=== PATIENT | male | born 1955 | race American Indian/Alaskan Native ===

== ENCOUNTER 2020-07-30 12:40 | Emergency (ER) | payer MEDICARE ==
[2020-07-30] MEDS ORDERED: HYDROmorphone 1 MG/1 ML INJ IV ONE (12:55)
[2020-07-30] MEDS ORDERED: ONDANSETRON 4 MG/2 ML INJ IV ONE (12:55)
[2020-07-30] MEDS ORDERED: KETOROLAC 30 MG/1 ML INJ IM ONE (12:55)
--- NOTE | 2020-07-30 13:01 | Emergency Department Report ---
ED Lower Extremity HPI - General Stated Complaint: LT HIP PAIN Time Seen by Provider: 07/30/20 12:55 - History of Present Illness Initial Comments: 64-year-old male with a past medical history of right hip pain July last year secondary to arthritis and no other medical problems presents to the hospital complaining of left hip pain after fall. Patient was walking down the steps and slipped landing on his left hip and buttock area. Complains of mo derate to severe left hip pain radiating to his back. Pain is worse with movement and palpation. Unable to bear weight since fall. patient denies head injury, neck pain, or LOC. Patient received fentanyl 100 mcg in route to the hospital with some improvement in pain. Patient states he takes motion, muscle relaxant, and unknown medication is starts with an N. His orthopedic surgeon is Dr. Martinez associated with [facility] - Related Data Previous Rx's Medication Instructions Recorded Last Taken Type Docusate Sodium [Colace] 100 mg PO BID PRN #20 capsule 07/30/20 Unknown Rx HYDROcodone/APAP 5-325 [[place] 1 each PO Q6HR PRN #15 tablet 07/30/20 Unknown Rx 5/325] Allergies Allergy/AdvReac Type Severity Reaction Status Date / Time No Known Allergies Allergy Unverified 07/30/20 13:07 ED Review of Systems ROS: Stated complaint: LT HIP PAIN Other details as noted in HPI Comment: All other systems reviewed and negative ED Past Medical Hx - Past Medical History Hx Hypertension: No Hx Arthritis: Yes - Surgical History Additional Surgical History: Right hip replacement due to arthritis - Medications Home Medications: Home Medications Medication Instructions Recorded Confirmed Last Taken Type Docusate Sodium [Colace] 100 mg PO BID PRN #20 capsule 07/30/20 Unknown Rx HYDROcodone/APAP 5-325 [[place] 1 each PO Q6HR PRN #15 tablet 07/30/20 Unknown Rx 5/325] ED Physical Exam - Other Other exam information: General: No acute distress Head: Atraumatic Eyes: normal appearance ENT: Moist mucous membranes Neck: Normal appearance, no midline tenderness Chest: Clear to auscultation bilaterally CV: Regular rate and rhythm Abdomen: Soft, normal bowel sounds, nontender, nondistended, no rebound or guarding Back: Normal inspection Extremity: Normal inspection no rotation or shortening, left hip tenderness with palpation. Limited hip flexion secondary to pain. Pain with passive movement in all direction. 2+ DP pulse. Distal sensation intact Neuro: Alert O x 3, no facial asymmetry, speech clear, no gross motor sensory deficit Psych: Appropriate behavior Skin: No rash ED Course Vital Signs 07/30/20 07/30/20 07/30/20 13:02 13:16 13:17 Temperature 98.8 F Pulse Rate 76 Respiratory 22 22 20 Rate Blood Pressure 186/96 Blood Pressure [Left] O2 Sat by Pulse 99 Oximetry 07/30/20 15:13 Temperature 98.7 F Pulse Rate 76 Respiratory 20 Rate Blood Pressure Blood Pressure 170/92 [Left] O2 Sat by Pulse 99 Oximetry ED Lower Extremity MDM - Radiology Data Radiology results: report reviewed CT lumbar spine wo con INDICATION / CLINICAL INFORMATION: 64 years Male; left hip pain, fall. TECHNIQUE: Axial CT images of the lumbar spine were obtained. Sagittal and coronal reformatted images were produced. All CT scans at this location are performed using CT dose reduction for ALARA by means of automated exposure control. COMPARISON: None available. FINDINGS: POST-SURGICAL CHANGES: Partial, bilateral hemilaminectomies seen at L2, L3, and L4. ALIGNMENT: No significant abnormality. VERTEBRAE: No signs of fracture. Vertebral bodies are grossly normal in height throughout. However, there is mild anterior wedging at T11, which appears to be on a chronic basis. . Significant Modic type III endplate changes seen at L4-5. There is mild to moderate osseous foraminal narrowing at multiple levels, largely related facet hypertrophy. Moderate facet hypertrophy seen at multiple levels, which certainly could be associated with pain. Some component of facet widening seen at various levels, with most marked findings at L4- 5. Flexion-extension views may be helpful in evaluating for segmental instability. 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 INTERVERTEBRAL DISCS: Significant disc space narrowing is seen at L4-5. No significant vertebral canal narrowing seen. Its difficult to evaluate the diameter of the thecal sac at multiple levels in the postoperative region, because of postoperative change, which results in scarring. PARASPINAL SOFT TISSUES: No significant abnormality. ADDITIONAL FINDINGS: Atherosclerotic disease is seen in the aorta and its branches. IMPRESSION: 1. No signs of acute bony trauma to the lumbar spine. CT PELVIS WITHOUT CONTRAST HISTORY: Left hip pain, fall TECHNIQUE: Helical CT was sagittal and coronal reformatted images. All CT scans at this location are performed using CT dose reduction for ALARA by means of automated exposure control. COMPARISON: Left hip films performed earlier today. FINDINGS: Severe osteoarthritic changes are identified at the left hip. There is no evidence for acute fracture or osteonecrosis. Right hip replacement appears intact and unremarkable. No pelvic fracture or diastasis. Moderate spondylosis is noted in the lower lumbar spine. Previous bilateral laminectomies at L4 are noted, correlate with history. The pelvic viscera are unremarkable. No pelvic fluid collection or mass. IMPRESSION: Advanced osteoarthritic changes as described. No acute osseous injury is appreciated. LUMBOSACRAL SPINE 3 VIEWS INDICATION: pain after fall. COMPARISON: None. IMPRESSION: Normal alignment. Moderate to severe degenerative disc disease and facet arthropathy are identified at all levels. L4-5 is most affected. Left L5 hemitransitional vertebra is noted. No acute osseous or soft tissue abnormality. LEFT HIP 3 VIEWS INDICATION: pain after fall. COMPARISON: None. IMPRESSION: No acute osseous or soft tissue abnormality. Severe end-stage osteoarthritic changes are identified at the left hip with joint space narrowing, articular surface sclerosis, subchondral cyst formation and osteophytosis. Right hip replacement is noted and appears unremarkable. - Medical Decision Making Patient received Dilaudid 0.5 mg and Toradol in the ED with further improvement in pain. Patient able to ambulate with his walker at time of disposition. No a cute fracture identified on x-ray or CT. Patient discharged to follow-up with his orthopedic doctor affiliated with [facility]. BP noted to be elevated without previous reported history of hypertension. Elevation in BP might be due to acute pain and follow-up will be encouraged to determine if medications are necessary Critical Care Time: No Critical care attestation.: If time is entered above; I have spent that time in minutes in the direct care of this critically ill patient, excluding procedure time. ED Disposition Clinical Impression: Strain of left hip, Fall, Low back strain, Hip arthritis, Elevated blood pressure reading Disposition: TO HOME OR SELFCARE Is pt being admited?: No Does the pt Need Aspirin: No Condition: Stable Instructions: Lumbar Sprain, Hip Sprain, Osteoarthritis, How to Take Your Blood Pressure Additional Instructions: Take the medication as prescribed. Follow-up with your doctor or doctor/clinic provided. Return if symptoms worsen as indicated by your discharge instructions. Your blood pressure is also elevated today. Follow-up with your doctor or the doctor provided to recheck your blood pressure determine if medications are needed. Prescriptions: Docusate Sodium [Colace] 100 mg PO BID PRN #20 capsule PRN Reason: Constipation HYDROcodone/APAP 5-325 [[place] 5/325] 1 each PO Q6HR PRN #15 tablet PRN Reason: Pain Referrals: Your orthopedic, [Other] - 3-5 Days PRIMARY CARE, [Primary Care Provider] - 3-5 Days ELOY MILAN MD [Staff Physician] - 3-5 Days (Orthopedic doctor) BRITTANI SOARES MD [Staff Physician] - 3-5 Days (Primary care doctor) Time of Disposition: 15:20
--- NOTE | 2020-07-30 13:52 | XRay Report ---
LUMBOSACRAL SPINE 3 VIEWS INDICATION: pain after fall. COMPARISON: None. IMPRESSION: Normal alignment. Moderate to severe degenerative disc disease and facet arthropathy ar e identified at all levels. L4-5 is most affected. Left L5 hemitransitional vertebra is noted. No ac jena osseous or soft tissue abnormality. LEFT HIP 3 VIEWS INDICATION: pain after fall. COMPARISON: None. IMPRESSION: No acute osseous or soft tissue abnormality. Severe end-stage osteoarthritic changes are identified at the left hip with joint space narrowing, articular surface sclerosis, subchondral c yst formation and osteophytosis. Right hip replacement is noted and appears unremarkable. Signer Name: Rudolph Franco Jr, MD Signed: 07/30/2020 1:47 PM Workstation Name: [id number]
--- NOTE | 2020-07-30 13:52 | XRay Report ---
LUMBOSACRAL SPINE 3 VIEWS INDICATION: pain after fall. COMPARISON: None. IMPRESSION: Normal alignment. Moderate to severe degenerative disc disease and facet arthropathy ar e identified at all levels. L4-5 is most affected. Left L5 hemitransitional vertebra is noted. No ac [place] osseous or soft tissue abnormality. LEFT HIP 3 VIEWS INDICATION: pain after fall. COMPARISON: None. IMPRESSION: No acute osseous or soft tissue abnormality. Severe end-stage osteoarthritic changes are identified at the left hip with joint space narrowing, articular surface sclerosis, subchondral c yst formation and osteophytosis. Right hip replacement is noted and appears unremarkable. Signer Name: Rudolph Franco Jr, MD Signed: 07/30/2020 1:47 PM Workstation Name: [id number]
--- NOTE | 2020-07-30 14:41 | Cat Scan Report ---
CT PELVIS WITHOUT CONTRAST HISTORY: Left hip pain, fall TECHNIQUE: Helical CT was sagittal and coronal reformatted images. All CT scans at this location are performed using CT dose reduction for ALARA by means of automated exposure control. COMPARISON: Left hip films performed earlier today. FINDINGS: Severe osteoarthritic changes are identified at the left hip. There is no evidence for acut e fracture or osteonecrosis. Right hip replacement appears intact and unremarkable. No pelvic fractur e or diastasis. Moderate spondylosis is noted in the lower lumbar spine. Previous bilateral laminecto mies at L4 are noted, correlate with history. The pelvic viscera are unremarkable. No pelvic fluid collection or mass. IMPRESSION: Advanced osteoarthritic changes as described. No acute osseous injury is appreciated. Signer Name: Rudolph Franco Jr, MD Signed: 07/30/2020 2:36 PM Workstation Name: [id number]
--- NOTE | 2020-07-30 14:47 | Cat Scan Report ---
CT lumbar spine wo con INDICATION / CLINICAL INFORMATION: 64 years Male; left hip pain, fall. TECHNIQUE: Axial CT images of the lumbar spine were obtained. Sagittal and coronal reformatted images were prod uced. All CT scans at this location are performed using CT dose reduction for ALARA by means of autom ated exposure control. COMPARISON: None available. FINDINGS: POST-SURGICAL CHANGES: Partial, bilateral hemilaminectomies seen at L2, L3, and L4. ALIGNMENT: No significant abnormality. VERTEBRAE: No signs of fracture. Vertebral bodies are grossly normal in height throughout. However, t here is mild anterior wedging at T11, which appears to be on a chronic basis. . Significant Modic type III endplate changes seen at L4-5. There is mild to moderate osseous foraminal narrowing at multiple levels, largely related facet hyper trophy. Moderate facet hypertrophy seen at multiple levels, which certainly could be associated with pain. Some component of facet widening seen at various levels, with most marked findings at L4-5. Fle xion-extension views may be helpful in evaluating for segmental instability. 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 INTERVERTEBRAL DISCS: Significant disc space narrowing is seen at L4-5. No significant vertebral canal narrowing seen. Its difficult to evaluate the diameter of the thecal s ac at multiple levels in the postoperative region, because of postoperative change, which results in scarring. PARASPINAL SOFT TISSUES: No significant abnormality. ADDITIONAL FINDINGS: Atherosclerotic disease is seen in the aorta and its branches. IMPRESSION: 1. No signs of acute bony trauma to the lumbar spine. Signer Name: Jack íDaz MD, III Signed: 07/30/2020 2:42 PM Workstation Name: [id number]
[2020-07-30 15:14] VITALS: BP 170/92
== END 2020-07-30 15:39 | disposition home or self-care (01) ==
LOC: ED 12:40
DX: S76.012A Strain of muscle, fascia and tendon of left hip, initial encounter (principal); S39.012A Strain of muscle, fascia and tendon of lower back, initial encounter; R03.0 Elevated blood-pressure reading, without diagnosis of hypertension; M19.90 Unspecified osteoarthritis, unspecified site; Z98.890 Other specified postprocedural states; Z79.899 Other long term (current) drug therapy; W10.9XXA Fall (on) (from) unspecified stairs and steps, initial encounter; Y93.89 Activity, other specified; Y92.89 Other specified places as the place of occurrence of the external cause; Y99.8 Other external cause status
CPT/HCPCS: 72100; 72131; 72192; 73502; 96372; 96374; 96375; 99284; J1170; J1885; J2405

== ENCOUNTER 2021-01-02 13:32 | Emergency (ER) | payer MEDICARE ==
[2021-01-02] MEDS ORDERED: ONDANSETRON 4 MG/2 ML INJ IV ONE (14:27)
[2021-01-02] MEDS ORDERED: fentaNYL 100 MCG/2 ML INJ IV ONE (14:27)
[2021-01-02] MEDS ORDERED: KETOROLAC 30 MG/1 ML INJ IV ONE (14:27)
--- NOTE | 2021-01-02 14:38 | Emergency Department Report ---
HPI - General Chief Complaint: Back Pain/Injury Time Seen by Provider: 01/02/21 14:19 - HPI HPI: Room 7 The patient is a 65-year-old male present with a chief complaint of back pain. Patient his pain had improved after the surgery he was in his usual state of health until yesterday when he again developed low back pain. Patient denies any recent trauma or fever. Patient denies abdominal pain. Patient complains of pain with any type of movement. Patient currently gives his pain a score of 10/10. Patient denies loss of control of bowels or bladder. Of note the patient had lumbar surgery 2 years ago for the same pain ED Past Medical Hx - Past Medical History Previous Medical History?: Yes Hx Hypertension: Yes Hx Arthritis: Yes Additional medical history: R hip Fx - Surgical History Past Surgical History?: Yes Additional Surgical History: Right hip replacement due to arthritis. Back surgery - Family History Family history: no significant - Social History Smoking Status: Never Smoker Substance Use Type: Alcohol (Daily small amount), Marijuana - Medications Home Medications: Home Medications Medication Instructions Recorded Confirmed Last Taken Type Docusate Sodium [Colace] 100 mg PO BID PRN #20 capsule 07/30/20 Unknown Rx HYDROcodone/APAP 5-325 [[place] 1 each PO Q6HR PRN #15 tablet 07/30/20 Unknown Rx 5/325] Cyclobenzaprine [Flexeril] 10 mg PO TID PRN #10 tablet 01/02/21 Unknown Rx Naproxen [Naprosyn] 500 mg PO BID #20 tablet 01/02/21 Unknown Rx oxyCODONE /ACETAMINOPHEN [Percocet 1 - 2 tab PO Q6HR PRN #14 tablet 01/02/21 Unknown Rx 5/325] ED Review of Systems ROS: Stated complaint: BACK PAIN Other details as noted in HPI Constitutional: denies: fever Eyes: denies: eye pain ENT: denies: throat pain Respiratory: no symptoms reported Cardiovascular: denies: chest pain Endocrine: no symptoms reported Gastrointestinal: denies: abdominal pain Genitourinary: denies: dysuria Musculoskeletal: back pain Neurological: denies: headache Physical Exam - Physical Exam Vital Signs: Vital Signs 01/02/21 13:38 Temperature 98.9 F Pulse Rate 81 Respiratory 18 Rate Blood Pressure 180/89 O2 Sat by Pulse 98 Oximetry Physical Exam: GENERAL: The patient is well-developed well-nourished male lying on stretcher not appearing to be in acute distress. [] HEENT: Normocephalic. Atraumatic. Extraocular motions are intact. Patient has moist mucous membranes. NECK: Supple. Trachea midline CHEST/LUNGS: Clear to auscultation. There is no respiratory distress noted. HEART/CARDIOVASCULAR: Regular. There is no tachycardia. There is no gallop rub or murmur. ABDOMEN: Abdomen is soft, nontender. Patient has normal bowel sounds. There is no abdominal distention. SKIN: There is no rash. There is no edema. There is no diaphoresis. NEURO: The patient is awake, alert, and oriented. The patient is cooperative. The patient has no focal neurologic deficits. The patient has normal speech MUSCULOSKELETAL: There is tenderness to the lumbar spine overlying his previous surgical scar. There is no evidence of acute injury. ED Course Vital Signs 01/02/21 13:38 Temperature 98.9 F Pulse Rate 81 Respiratory 18 Rate Blood Pressure 180/89 O2 Sat by Pulse 98 Oximetry - Reevaluation(s) Reevaluation #1: 01/02/21 17:23 Patient states he feels improved. CT scan findings discussed with patient and need for orthopedic surgery follow-up expressed. Patient states he is going to contact Dr. Jordan orthopedic surgeon to perform his back surgery tomorrow ED Medical Decision Making - Radiology Data Radiology results: report reviewed (CT lumbar spine), image reviewed (CT lumbar spine) [facility] [address] [id number] Cat Scan Report Signed Patient: MALVIN BRANNON MR#: [id number] : 1955 Acct:[id number] Age/Sex: 65 / M ADM Date: 01/02/21 Loc: ED Attending Dr: Ordering Physician: DANIEL HOSKINS MD Date of Service: 01/02/21 Procedure(s): CT lumbar spine wo con Accession Number(s): [id number] cc: DANIEL HOSKINS MD CT LUMBAR SPINE WITHOUT CONTRAST HISTORY: Low back pain COMPARISON: CT scan of the lumbar spine from 07/30/2020 TECHNIQUE: CT images of the lumbar spine were obtained without contrast. Sagittal and coronal reformats were post-processed.All CT scans at this location are performed using CT dose reduction for ALARA by means of automated exposure control. CONTRAST: None. FINDINGS: Alignment: Normal. No traumatic subluxation. Vertebrae:Laminectomy at L3 and L4; partial laminectomy of L2; no change in the lucency at the left the L2 pars interarticulares with adjacent sclerosis Disc Spaces: Transitional lumbosacral junction at L5-S1 Madelyn II A left T12-L1 and L1-L2: Normal L2-L3: Bridging osteophyte on the right side; laminectomy; facet joint hypertrophic changes bilaterally bulging disc L3-L4: Laminectomy; mild facet joint hypertrophic changes; bulging disc L4- L5: Disc height loss with sclerotic changes in the endplates; unchanged; laminectomy; moderate facet joint hypertrophic changes; bony spur bilaterally more towards the left side; neuroforamina are narrowed L5-S1: Transitional level; calcified ligament on the right side; right neuroforamen narrowed CT findings unchanged Additional Findings: None IMPRESSION: Laminectomy at L3 and L4 levels; partial laminectomy at the L2 CT findings unchanged since July 2020 Signer Name: Lina Hernandez MD Signed: 01/02/2021 3:34 PM Workstation Name: [id number] Transcribed By: BS Dictated By: Lina Miguel MD Electronically Authenticated By: Lina Miguel MD Signed Date/Time: 01/02/211533 DD/ 21 TD/TT: Print Cancel - Differential Diagnosis Lumbar pain, discogenic pain Critical care attestation.: If time is entered above; I have spent that time in minutes in the direct care of this critically ill patient, excluding procedure time. ED Disposition Clinical Impression: Lumbar pain Disposition: DC-01 TO HOME OR SELFCARE Is pt being admited?: No Does the pt Need Aspirin: No Condition: Stable Instructions: Acute Back Pain, Adult, Pain Without a Known Cause Additional Instructions: Return to the emergency department should you develop worsening symptoms, inability to tolerate food or liquids, high fever or any other concerns Prescriptions: Cyclobenzaprine [Flexeril] 10 mg PO TID PRN #10 tablet PRN Reason: Muscle Spasm Naproxen [Naprosyn] 500 mg PO BID #20 tablet oxyCODONE /ACETAMINOPHEN [Percocet 5/325] 1 - 2 tab PO Q6HR PRN #14 tablet PRN Reason: Pain Referrals: ELOY LYNN MD [Staff Physician] - 3-5 Days (Dr. Lynn is an orthopedic surgeon. Please follow-up with him or your orthopedic surgeon for further management) Time of Disposition: 17:25
--- NOTE | 2021-01-02 15:38 | Cat Scan Report ---
CT LUMBAR SPINE WITHOUT CONTRAST HISTORY: Low back pain COMPARISON: CT scan of the lumbar spine from 07/30/2020 TECHNIQUE: CT images of the lumbar spine were obtained without contrast. Sagittal and coronal reform ats were post-processed.All CT scans at this location are performed using CT dose reduction for ALARA by means of automated exposure control. CONTRAST: None. FINDINGS: Alignment: Normal. No traumatic subluxation. Vertebrae:Laminectomy at L3 and L4; partial laminectomy of L2; no change in the lucency at the left t he L2 pars interarticulares with adjacent sclerosis Disc Spaces: Transitional lumbosacral junction at L5-S1 Madelyn II A left T12-L1 and L1-L2: Normal L2-L3: Bridging osteophyte on the right side; laminectomy; facet joint hypertrophic changes bilateral ly bulging disc L3-L4: Laminectomy; mild facet joint hypertrophic changes; bulging disc L4-L5: Disc height loss with sclerotic changes in the endplates; unchanged; laminectomy; moderate fac et joint hypertrophic changes; bony spur bilaterally more towards the left side; neuroforamina are na rrowed L5-S1: Transitional level; calcified ligament on the right side; right neuroforamen narrowed CT findings unchanged Additional Findings: None IMPRESSION: Laminectomy at L3 and L4 levels; partial laminectomy at the L2 CT findings unchanged since July 2020 Signer Name: Lina Hernandez MD Signed: 01/02/2021 3:34 PM Workstation Name: [id number]
[2021-01-02] MEDS ORDERED: HYDROmorphone 1 MG/1 ML INJ IV ONE (17:22)
[2021-01-02 18:13] VITALS: BP 164/98
== END 2021-01-02 18:14 | disposition home or self-care (01) ==
LOC: ED 13:32
DX: M54.5 Low back pain (principal); I10 Essential (primary) hypertension; M19.90 Unspecified osteoarthritis, unspecified site; F12.90 Cannabis use, unspecified, uncomplicated; Z79.899 Other long term (current) drug therapy; Z98.890 Other specified postprocedural states
CPT/HCPCS: 72131; 96374; 96375; 99284; J1170; J1885; J2405; J3010